=== PATIENT | male | born 1995 | race American Indian/Alaskan Native ===

== ENCOUNTER 2018-01-08 18:18 | Inpatient (IN) | payer OTHER ==
[2018-01-08 19:15] LABS: Basophils # (Auto) 0.1 K/mm3 (0.0-0.1); Basophils % (Auto) 0.9 % (0.0-1.8); Eosinophils # (Auto) 0.1 K/mm3 (0.0-0.4); Eosinophils % (Auto) 0.7 % (0.0-4.3); Hematocrit 52.7 % (35.5-45.6); Hemoglobin 16.7 gm/dl (11.8-15.2); Lymphocytes # (Auto) 2.6 K/mm3 (1.2-5.4); Lymphocytes % (Auto) 23.9 % (13.4-35.0); Mean Corpuscular HGB Conc 32 % (32-34); Mean Corpuscular Hemoglobin 25 pg (28-32); Mean Corpuscular Volume 79 fl (84-94); Monocytes # (Auto) 0.7 K/mm3 (0.0-0.8); Monocytes % (Auto) 6.8 % (0.0-7.3); Platelet Count 177 K/mm3 (140-440); Red Blood Count 6.64 M/mm3 (3.65-5.03); Red Cell Distribution Width 13.8 % (13.2-15.2)
[2018-01-08 20:25] LABS: Alanine Aminotransferase 33 units/L (7-56); Albumin 4.9 g/dL (3.9-5); BUN/Creatinine Ratio 9; Blood Urea Nitrogen 13 mg/dL (9-20); Calcium 9.6 mg/dL (8.4-10.2); Hemolysis Index 13
[2018-01-08] MEDS ORDERED: NACL 0.9% 1000 ML 1,000 ML ONE (22:13)
[2018-01-08 22:14] LABS: Bilirubin,Urine NEG (Negative); Blood,Urine SM (Negative); Color,Urine Straw (Yellow); Mucus,Urine FEW /HPF; Urobilinogen,Urine < 2.0 mg/dL (<2.0)
[2018-01-08] MEDS ORDERED: NACL 0.9% 1000 ML 1,000 ML IV ONE (22:29)
[2018-01-09] MEDS ORDERED: HumuLIN R IV ONE (00:23)
--- NOTE | 2018-01-09 00:39 | Cat Scan Report ---
FINAL REPORT EXAM: CT ABDOMEN PELVIS WO CON HISTORY: abd pain, nausea, diabetic with epigastric pain TECHNIQUE: CT evaluation performed of the abdomen and pelvis without IV or oral contrast administration. Coronal and sagittal imaging also provided for interpretation. PRIORS: None. FINDINGS: Lower lungs and heart are unremarkable. Diffuse decreased attenuation of the patent parenchyma. The biliary system, pancreas, spleen, adrenal glands, kidneys and bladder are normal without contrast. The pelvic organs are normal. There is no evidence of mass, pathological calcification, or fluid collection noted within the abdomen or pelvis without contrast. The unopacified portions of the gastrointestinal tract are unremarkable. The appendix measures at the upper limits of normal, however there is no adjacent inflammatory change. No acute osseous abnormality. IMPRESSION: No acute intra-abdominal process. Specifically no obstructive uropathy or evidence of bowel obstruction. No periappendicial inflammatory changes. Hepatic steatosis.
--- NOTE | 2018-01-09 00:50 | Emergency Department Report ---
ED General Adult HPI - General Chief complaint: Abdominal Pain Stated complaint: ABD PAIN Time Seen by Provider: 01/08/18 21:20 Source: patient Mode of arrival: Ambulatory Limitations: No Limitations - History of Present Illness Initial comments: This is a pleasant 22-year-old -[place] male who reports having worsening abdominal pain and feelings of weakness and fatigue over the last 2 weeks. He has a history of hypertension but states he has no other medical problems. He states that his abdominal pain has worsened over the past several days and admits to nausea and vomiting. He also admits to frequent urination. He states that he feels very thirsty as well. He states that his lips are dry. He has a past medical history significant for tonsillectomy. -: Gradual, week(s) (2) Location: abdomen Radiation: non-radiation Quality: aching Consistency: constant Improves with: none Worsens with: none Associated Symptoms: headaches Treatments Prior to Arrival: none - Related Data Allergies Allergy/AdvReac Type Severity Reaction Status Date / Time No Known Allergies Allergy Unverified 01/08/18 18:35 ED Review of Systems ROS: Stated complaint: ABD PAIN Other details as noted in HPI Comment: All other systems reviewed and negative Constitutional: see HPI Eyes: as per HPI ENT: as per HPI Respiratory: see HPI Cardiovascular: as per HPI Endocrine: see HPI Gastrointestinal: as per HPI Genitourinary: as per HPI Musculoskeletal: as per HPI Skin: as per HPI Neurological: as per HPI Psychiatric: as per HPI Hematological/Lymphatic: as per HPI ED Past Medical Hx - Past Medical History Hx Hypertension: Yes - Surgical History Past Surgical History?: Yes Additional Surgical History: TONSILLECTOMY/ADNOIDECTOMY - Social History Smoking Status: Never Smoker Substance Use Type: None ED Physical Exam - General Limitations: No Limitations General appearance: lethargic - Head Head exam: Present: atraumatic, normocephalic - Eye Eye exam: Present: normal appearance, PERRL, EOMI - ENT ENT exam: Present: mucous membranes dry - Neck Neck exam: Present: normal inspection - Respiratory Respiratory exam: Present: normal lung sounds bilaterally. Absent: respiratory distress, wheezes, rales, rhonchi - Cardiovascular Cardiovascular Exam: Present: regular rate, normal rhythm, normal heart sounds - GI/Abdominal GI/Abdominal exam: Present: soft, tenderness (generalized). Absent: distended, guarding, rebound, rigid - Extremities Exam Extremities exam: Present: normal inspection, full ROM, normal capillary refill - Back Exam Back exam: Present: normal inspection, full ROM - Neurological Exam Neurological exam: Present: alert, CN II-XII intact - Psychiatric Psychiatric exam: Present: normal affect, normal mood - Skin Skin exam: Present: warm, dry, intact, normal color ED Course Vital Signs 01/08/18 01/08/18 01/08/18 18:32 20:58 21:00 Temperature 98.2 F Pulse Rate 113 H Respiratory 20 Rate Blood Pressure 147/95 143/95 O2 Sat by Pulse 97 99 98 Oximetry 01/08/18 01/08/18 01/08/18 21:16 21:30 21:45 Temperature Pulse Rate 102 H 102 H 100 H Respiratory 15 16 13 Rate Blood Pressure 145/99 156/94 156/94 O2 Sat by Pulse 94 97 99 Oximetry 01/08/18 01/08/18 01/08/18 22:04 22:15 22:24 Temperature Pulse Rate 91 H 90 Respiratory 27 H 13 Rate Blood Pressure 156/94 145/98 134/96 O2 Sat by Pulse 100 100 100 Oximetry 01/08/18 01/08/18 01/08/18 22:30 22:46 23:00 Temperature Pulse Rate 96 H 98 H 102 H Respiratory 14 18 16 Rate Blood Pressure 126/95 126/95 134/83 O2 Sat by Pulse 99 99 99 Oximetry 01/08/18 01/08/18 01/08/18 23:16 23:30 23:45 Temperature Pulse Rate 99 H 94 H 101 H Respiratory 13 16 14 Rate Blood Pressure 134/83 137/84 137/84 O2 Sat by Pulse 98 99 99 Oximetry - Reevaluation(s) Reevaluation #1: 01/09/18 01:45 New-onset diabetic patient. I discussed the case with the hospitalist. She will admit the patient. I went ahead and put in orders for DKA protocol. We will need to start the patient on an insulin drip and give fluids accordingly. Cautiously proceed. ED Medical Decision Making - Lab Data Result diagrams: 01/08/18 19:04 01/08/18 19:04 Critical care attestation.: If time is entered above; I have spent that time in minutes in the direct care of this critically ill patient, excluding procedure time. ED Disposition Clinical Impression: New onset type 2 diabetes mellitus DKA (diabetic ketoacidoses) Qualifiers: Diabetes mellitus type: type 2 Diabetes mellitus complication detail: without coma Qualified Code(s): E11.10 - Type 2 diabetes mellitus with ketoacidosis without coma Disposition: OP ADMIT IP TO THIS HOSP Is pt being admited?: Yes Does the pt Need Aspirin: No Condition: Stable Instructions: Diabetic Ketoacidosis (ED), Diabetes Mellitus Type 2 in Adults ( ED) Referrals: AKIN DIAZ MD [Primary Care Provider] - 3-5 Days
[2018-01-09] MEDS ORDERED: TYLENOL ONE (01:06)
[2018-01-09] MEDS ORDERED: TYLENOL PO ONE (01:12)
[2018-01-09] MEDS ORDERED: D50W (25GM) Syringe IV PRN (01:20)
[2018-01-09] MEDS ORDERED: ZOFRAN IV PRN (02:19)
[2018-01-09] MEDS ORDERED: TYLENOL PO PRN (02:19)
[2018-01-09] MEDS ORDERED: SODIUM CHLORIDE FLUSH SYRINGE 10 ML IV PRN (02:19)
[2018-01-09] MEDS: HumuLIN R 100 UNITS in NACL 0.9% 99 ML IV SCH ×4 (02:21→23:20)
[2018-01-09] MEDS ORDERED: APRESOLINE IV PRN (02:21)
--- NOTE | 2018-01-09 02:29 | History and Physical Report ---
History of Present Illness Date of examination: 01/09/18 History of present illness: 22-year-old male with a history of hypertension, obesity comes emergency room with abdominal pain that started to 4 days ago. The pain is in the lower abdomen which she described as a dull pain, constant, intensity palpable at 10, no radiation, he can't identify exacerbating or relieving factors. He admits to multiple episodes of nausea vomiting, polyuria, polydipsia, unclear if he lost any weight Review of systems Constitutional: no weight loss, chills Ears, eyes, nose, mouth and throat: no nasal congestion, no nasal discharge, no sinus pressure, no vision change, no red eye. Neck: No neck pain or rigidity. Cardiovascular: no chest pain palpitations Respiratory: No cough, shortness of breath Gastrointestinal: no abdominal pain, hematochezia Genitourinary : no dysuria, frequency , no hematuria Musculoskeletal: no joint swelling or muscle ache Integumentary: no rash, no pruritis Neurological: no parathesias, no numbness, no focal weakness Endocrine: no cold or heat intolerance Hematologic/Lymphatic: no easy bruising, no easy bleeding, no gland swelling Allergic/Immunologic: no urticaria, no angioedema. PAST MEDICAL HISTORY: Hypertension PAST SURGICAL HISTORY: Tonsillectomy, adenoidectomy SOCIAL HISTORY: Denies tobacco, alcohol, drugs FAMILY HISTORY: Diabetes, hypertension Medications and Allergies Allergies Allergy/AdvReac Type Severity Reaction Status Date / Time No Known Allergies Allergy Unverified 01/08/18 18:35 Home Medications Medication Instructions Recorded Confirmed Last Taken Type No Known Home Medications [No 01/09/18 01/09/18 Unknown History Reported Home Medications] Active Meds: Active Medications Acetaminophen (Tylenol) 650 mg PO Q4H PRN PRN Reason: Pain MILD(1-3)/Fever >100.5/BEJARANO Dextrose (D50w (25gm) Syringe) 0 ml IV PRN PRN PRN Reason: Hypoglycemia Enoxaparin Sodium (Lovenox) 30 mg SUB-Q QDAY [facility] Hydralazine HCl (Apresoline) 5 mg IV Q6HR PRN PRN Reason: Hypertension Insulin Human Regular 100 (units/ Sodium Chloride) 100 mls @ 1 mls/hr IV TITR SY[facility]; Protocol Dextrose/Sodium Chloride (D5/0.45ns) 1,000 mls @ 150 mls/hr IV DIRECT SY[facility] Sodium Chloride (Nacl 0.9% 1000 Ml) 1,000 mls @ 150 mls/hr IV DIRECT [facility] Morphine Sulfate (Morphine) 2 mg IV Q4H PRN PRN Reason: Pain, Moderate (4-6) Ondansetron HCl (Zofran) 4 mg IV Q8H PRN PRN Reason: Nausea And Vomiting Sodium Chloride (Sodium Chloride Flush Syringe 10 Ml) 10 ml IV BID SYLVIA Sodium Chloride (Sodium Chloride Flush Syringe 10 Ml) 10 ml IV PRN PRN PRN Reason: LINE FLUSH Exam - Physical Exam Narrative exam: Gen. appearance: Patient lying in bed, no apparent distress HEENT: Normocephalic, atraumatic, pupils equally round and reactive to light, extraocular movement intact, and no sclericterus,. No JVD or thyromegaly or nodule,neck supple, no carotid bruit ,mucous membranes dry, no exudate or erythema Heart: S1, S2, regular rate and rhythm Lungs: Clear to auscultation bilaterally, breathing comfortable Abdomen: Positive bowel sounds, nontender, nondistended, no organomegaly Extremity: No edema, cyanosis, clubbing Skin: No rash, nodules, warm, dry Neuro: Oriented 3, cranial nerves II-12 intact, speech is fluent, motor and sensory intact - Constitutional Vitals: Temp Pulse Resp BP Pulse Ox 98.2 F 97 H 18 135/78 100 01/08/18 18:32 01/09/18 01:56 01/09/18 01:56 01/09/18 01:56 01/09/18 01:56 Results - Labs CBC & Chem 7: 01/08/18 19:04 01/08/18 19:04 Labs: Abnormal lab results 01/08/18 01/08/18 01/09/18 Range/Units 19:04 19:04 00:10 RBC 6.64 H (3.65-5.03) M/mm3 Hgb 16.7 H (11.8-15.2) gm/dl Hct 52.7 H (35.5-45.6) % MCV 79 L (84-94) fl MCH 25 L (28-32) pg Sodium 127 L (137-145) mmol/L Potassium 5.5 H (3.6-5.0) mmol/L Chloride 80.0 L (98-107) mmol/L Carbon Dioxide 14 L (22-30) mmol/L Glucose 591 H* (75-100) mg/dL POC Glucose 385 H (70-105) Total Protein 9.1 H (6.3-8.2) g/dL - Imaging and Cardiology EKG: image reviewed CT scan - abdomen: report reviewed CT scan - pelvis: report reviewed Assessment and Plan Assessment DKA New-onset diabetes Hypertensition Obesity Plan Admit medicine Start DKA protocol with insulin drip, IV fluids Check serial chemistry, fingersticks Consult critical care, dietitian IV hydralazine, IV morphine DVT prophylaxis
[2018-01-09 02:59] LABS: BUN/Creatinine Ratio 9; Blood Urea Nitrogen 12 mg/dL (9-20); Calcium 9.3 mg/dL (8.4-10.2); Hemolysis Index 14
[2018-01-09] MEDS ORDERED: NACL 0.9% 1000 ML 1,000 ML IV SCH (03:00)
[2018-01-09 05:05] LABS: BUN/Creatinine Ratio 8; Blood Urea Nitrogen 11 mg/dL (9-20); Calcium 9.1 mg/dL (8.4-10.2); Hemolysis Index 20
[2018-01-09] MEDS: D5/0.45NS 1,000 ML IV SCH ×2 (06:47→22:23)
[2018-01-09] MEDS: MORPHINE IV PRN ×2 (07:02→12:50)
[2018-01-09 07:58] LABS: BUN/Creatinine Ratio 9; Blood Urea Nitrogen 11 mg/dL (9-20); Calcium 9.1 mg/dL (8.4-10.2); Hemolysis Index 2
[2018-01-09] MEDS ORDERED: NACL 0.9% 1000 ML 1,000 ML IV ONE (09:00)
[2018-01-09] MEDS: SODIUM CHLORIDE FLUSH SYRINGE 10 ML IV SCH (10:48)
[2018-01-09 10:57] LABS: BUN/Creatinine Ratio 10; Blood Urea Nitrogen 11 mg/dL (9-20); Calcium 8.9 mg/dL (8.4-10.2); Hemolysis Index 215
[2018-01-09] MEDS: LOVENOX SUB-Q SCH (11:24)
--- NOTE | 2018-01-09 14:25 | Consultation ---
History of Present Illness Consult date: 01/09/18 Reason for consult: other History of present illness: Called to evaluate at the ED, case of a 22-year-old -[place] male, admitted to the hospital yesterday with a history of nausea, vomiting at all discomfort. The patient reports that he had been sick for the past 3-4 days with the symptoms. Additional associated complaints include polydipsia and polyuria. No fever or chills reported. No chest pain or respiratory complaints. Mother reports they have been feeling tired frequently in recent months. No prior history of diabetes, thyroid disorder. He has gained significant weight in the past year probably over 20 pounds. Snoring noted at nighttime, there may be a vague history of apneas but this is not clearly confirmed. Also recent diagnosis of hypertension, initiated on lisinopril Initial laboratories showed the following: Laboratory Tests 01/08/18 01/08/18 01/08/18 19:04 19:04 21:37 WBC 10.9 Hgb 16.7 H Hct 52.7 H Sodium 127 L Potassium 5.5 H Chloride 80.0 L Carbon Dioxide 14 L BUN 13 Creatinine 1.5 Glucose 591 H* POC Glucose 446 H Ketones Quantitative 01/08/18 01/09/18 23:42 02:34 WBC Hgb Hct Sodium 133 L Potassium Chloride 86.3 L Carbon Dioxide 14 L BUN Creatinine Glucose POC Glucose Ketones Quantitative Negative Medications and Allergies Allergies Allergy/AdvReac Type Severity Reaction Status Date / Time No Known Allergies Allergy Unverified 01/08/18 18:35 Home Medications Medication Instructions Recorded Confirmed Last Taken Type No Known Home Medications [No 01/09/18 01/09/18 Unknown History Reported Home Medications] Active Meds: Active Medications Acetaminophen (Tylenol) 650 mg PO Q4H PRN PRN Reason: Pain MILD(1-3)/Fever >100.5/BEJARANO Dextrose (D50w (25gm) Syringe) 0 ml IV PRN PRN PRN Reason: Hypoglycemia Enoxaparin Sodium (Lovenox) 40 mg SUB-Q QDAY [facility] Last Admin: 01/09/18 11:24 Dose: 40 mg Hydralazine HCl (Apresoline) 5 mg IV Q6H PRN PRN Reason: Hypertension Insulin Human Regular 100 (units/ Sodium Chloride) 100 mls @ 1 mls/hr IV TITR SYLVIA; Protocol Last Titration: 01/09/18 11:52 Dose: 7 units/hr, 7 mls/hr Dextrose/Sodium Chloride (D5/0.45ns) 1,000 mls @ 150 mls/hr IV DIRECT SYLVIA Last Admin: 01/09/18 06:47 Dose: 150 mls/hr Sodium Chloride (Nacl 0.9% 1000 Ml) 1,000 mls @ 150 mls/hr IV DIRECT SY[facility] Morphine Sulfate (Morphine) 2 mg IV Q4H PRN PRN Reason: Pain, Moderate (4-6) Last Admin: 01/09/18 07:02 Dose: 2 mg Ondansetron HCl (Zofran) 4 mg IV Q8H PRN PRN Reason: Nausea And Vomiting Last Admin: 01/09/18 07:02 Dose: 4 mg Sodium Chloride (Sodium Chloride Flush Syringe 10 Ml) 10 ml IV BID SYLVIA Last Admin: 01/09/18 10:48 Dose: 10 ml Sodium Chloride (Sodium Chloride Flush Syringe 10 Ml) 10 ml IV PRN PRN PRN Reason: LINE FLUSH Review of Systems Constitutional: weight gain, fatigue, weakness Physical Examination Vital signs: Vital Signs Temp Pulse Resp BP Pulse Ox 98.2 F 113 H 20 147/95 97 01/08/18 18:32 01/08/18 18:32 01/08/18 18:32 01/08/18 18:32 01/08/18 18:32 General appearance: no acute distress, alert Eyes: non-icteric ENT: oropharynx moist, oropharynx dry, other (Jeremy Craigong with Mallampati 4 ) Neck: supple, no JVD Ascultation: Bilateral: clear Percussion: Bilateral: not dull Cardiovascular: regular rate and rhythm Gastrointestinal: normoactive bowel sounds, non-distended Integumentary: normal Extremities: no cyanosis, no edema Musculoskeletal: no deformities normal mental status, non-focal exam, pupils equal and round, CN II-XII normal mood appropriate, affect normal Results - Laboratory Findings CBC and BMP: 01/08/18 19:04 01/09/18 09:55 Abnormal lab findings: Abnormal Labs 01/08/18 01/08/18 01/08/18 19:04 19:04 21:37 RBC 6.64 H Hgb 16.7 H Hct 52.7 H MCV 79 L MCH 25 L Sodium 127 L Potassium 5.5 H Chloride 80.0 L Carbon Dioxide 14 L Glucose 591 H* POC Glucose 446 H Total Protein 9.1 H 01/09/18 01/09/18 01/09/18 00:10 02:21 02:34 RBC Hgb Hct MCV MCH Sodium 133 L Potassium Chloride 86.3 L Carbon Dioxide 14 L Glucose 362 H POC Glucose 385 H 347 H Total Protein 01/09/18 01/09/18 01/09/18 04:30 04:31 06:37 RBC Hgb Hct MCV MCH Sodium 133 L Potassium Chloride 89.9 L Carbon Dioxide 13 L Glucose 304 H POC Glucose 282 H 256 H Total Protein 01/09/18 01/09/18 01/09/18 07:16 08:21 09:55 RBC Hgb Hct MCV MCH Sodium 136 L 130 L Potassium Chloride 92.1 L 92.7 L Carbon Dioxide 14 L 13 L Glucose 273 H 275 H POC Glucose 230 H Total Protein 01/09/18 01/09/18 01/09/18 10:15 11:47 13:43 RBC Hgb Hct MCV MCH Sodium Potassium Chloride Carbon Dioxide Glucose POC Glucose 256 H 280 H 252 H Total Protein Assessment and Plan Hyperosmolar state. Improving Diabetes de richard Hyponatremia Hyperkalemia. On AB inhibitor drug Morbid obesity Hypertension Suspected MORTEZA Recommendations Insulin drip , follow-up DKA protocol orders. May be close to be switched to NSS /D5W by now, depending on next blood sugar and electrolytes, AG level Insulin, sliding scale blood sugar monitoring closely Continue IV fluid replacement with normal saline 1 L, then follow with 0.45% saline at 200-250 mL per hour next 12-24 hours, if not hyponatremic. Switch to 0.45/D5W once blood sugars under 250 mg/DL and sodium normal Potassium improvement noted but reassess closely if lisinopril is to be used Assessment nephrology evaluation if renal profile remains abnormal Monitor serial electrolytes,AG, osmolality (avoid rapid drops) closely q 2-4 hr Regarding ICU admission, if the patient does not need insulin drip anymore, he called be admitted to the floor with close blood sugar monitoring as for diabetes de richard . Recommend hospitalist to follow up this. I also recommend outpatient evaluation for MORTEZA. I discussed this with patient and mother at the bedside. DVT prophylaxis measures. We'll follow the floor for MORTEZA, if the patient is not admitted the ICU
[2018-01-09 18:23] LABS: BUN/Creatinine Ratio 7; Blood Urea Nitrogen 8 mg/dL (9-20); Calcium 8.8 mg/dL (8.4-10.2); Hemolysis Index 8
[2018-01-10] MEDS: MORPHINE IV PRN (01:43)
[2018-01-10] MEDS: SODIUM CHLORIDE FLUSH SYRINGE 10 ML IV SCH ×3 (01:49→22:00)
[2018-01-10 03:11] LABS: BUN/Creatinine Ratio 5; Blood Urea Nitrogen 6 mg/dL (9-20); Calcium 8.5 mg/dL (8.4-10.2); Hemolysis Index 39
[2018-01-10] MEDS: D5/0.45NS 1,000 ML IV SCH (05:25)
[2018-01-10] MEDS: HumuLIN R 100 UNITS in NACL 0.9% 99 ML IV SCH (08:41)
--- NOTE | 2018-01-10 09:32 | Progress Note ---
Assessment and Plan Assessment and plan: 22-year-old male with a history of hypertension, obesity comes emergency room with abdominal pain that started to 4 days ago. The pain is in the lower abdomen which she described as a dull pain, constant, intensity palpable at 10, no radiation, he can't identify exacerbating or relieving factors. He admits to multiple episodes of nausea vomiting, polyuria, polydipsia, unclear if he lost any weight DKA * Order additional bolus of fluid. Continue insulin drip. After the bolus was 2 half-normal saline with D5W until sugar is under 250 and sodium as normal. * Discussed extensively with the patient's mother. * Transition orders in place while his anion gap is closed. New-onset diabetes * As noted above Hypertension * Controlled Pseudohyponatremia * Expect improvements with glucose improvement. Hypokalemia * Replace Morbid obesity * Weight loss discussed in detail. DVT and GI prophylaxis PLAN OF CARE DISCUSSED WITH PATIENT AND FAMILY AND WITH ADMISSION DISCHARGE RN The high probability of a clinically significant, sudden or life threatening deterioration of the [ENDOCRINE] system(s) required my full and direct attention , intervention and personal management. The aggregate critical care time was [35 ] minutes. This time is in addition to time spent performing reported procedures but includes the following: [X] Data Review and interpretation [X] Patient assessment and monitoring of vital signs [X] Documentation [X] Medication orders and management History Interval history: Patient seen and examined in no acute distress resting comfortably. Although he is drowsy he was able to answer a few questions, mother is at bedside, he reported headache although not the worst headache of his life Hospitalist Physical - Physical exam Narrative exam: VITAL SIGNS: Reviewed. GENERAL: The patient appeared well nourished and normally developed. Obese. Vital signs as documented. HEAD: No signs of head trauma. EYES: Pupils are equal. Extraocular motions intact. EARS: Hearing grossly intact. MOUTH: Oropharynx is normal. NECK: No adenopathy, no JVD. CHEST: Chest with clear breath sounds bilaterally. No wheezes, rales, or rhonchi. CARDIAC: Regular rate and rhythm. S1 and S2, without murmurs, gallops, or rubs. VASCULAR: No Edema. Peripheral pulses normal and equal in all extremities. ABDOMEN: Soft, without detectable tenderness. No sign of distention. No rebound or guarding, and no masses palpated. Bowel Sounds normal. MUSCULOSKELETAL: Good range of motion of all major joints. Extremities without clubbing, cyanosis or edema. NEUROLOGIC EXAM: Alert and oriented x 3. No focal sensory or strength deficits. Speech normal. Follows commands. PSYCHIATRIC: Mood normal. SKIN: No rash or lesions. - Constitutional Vitals: Temp Pulse Resp BP Pulse Ox 98.0 F 91 H 10 L 127/85 98 01/10/18 04:00 01/10/18 09:01 01/10/18 09:01 01/10/18 09:01 01/10/18 09:01 Results - Labs CBC & Chem 7: 01/08/18 19:04 01/11/18 06:11 Labs: Laboratory Last Values WBC 10.9 K/mm3 (4.5-11.0) 01/08/18 19:04 RBC 6.64 M/mm3 (3.65-5.03) H 01/08/18 19:04 Hgb 16.7 gm/dl (11.8-15.2) H 01/08/18 19:04 Hct 52.7 % (35.5-45.6) H 01/08/18 19:04 MCV 79 fl (84-94) L 01/08/18 19:04 MCH 25 pg (28-32) L 01/08/18 19:04 MCHC 32 % (32-34) 01/08/18 19:04 RDW 13.8 % (13.2-15.2) 01/08/18 19:04 Plt Count 177 K/mm3 (140-440) 01/08/18 19:04 Lymph % (Auto) 23.9 % (13.4-35.0) 01/08/18 19:04 [place] % (Auto) 6.8 % (0.0-7.3) 01/08/18 19:04 Eos % (Auto) 0.7 % (0.0-4.3) 01/08/18 19:04 Baso % (Auto) 0.9 % (0.0-1.8) 01/08/18 19:04 Lymph # 2.6 K/mm3 (1.2-5.4) 01/08/18 19:04 [place] # 0.7 K/mm3 (0.0-0.8) 01/08/18 19:04 Eos # 0.1 K/mm3 (0.0-0.4) 01/08/18 19:04 Baso # 0.1 K/mm3 (0.0-0.1) 01/08/18 19:04 Seg Neutrophils % 67.7 % (40.0-70.0) 01/08/18 19:04 Seg Neutrophils # 7.4 K/mm3 (1.8-7.7) 01/08/18 19:04 Sodium 134 mmol/L (137-145) L 01/10/18 01:31 Potassium 3.9 mmol/L (3.6-5.0) 01/10/18 01:31 Chloride 91.6 mmol/L (98-107) L 01/10/18 01:31 Carbon Dioxide 14 mmol/L (22-30) L 01/10/18 01:31 Anion Gap 32 mmol/L 01/10/18 01:31 BUN 6 mg/dL (9-20) L 01/10/18 01:31 Creatinine 1.1 mg/dL (0.8-1.5) 01/10/18 01:31 Estimated GFR > 60 ml/min 01/10/18 01:31 BUN/Creatinine Ratio 5 % 01/10/18 01:31 Glucose 210 mg/dL (75-100) H 01/10/18 01:31 POC Glucose 179 (70-105) H 01/10/18 09:02 Ketones Quantitative Negative (Negative) 01/08/18 23:42 Calcium 8.5 mg/dL (8.4-10.2) 01/10/18 01:31 Phosphorus 3.40 mg/dL (2.5-4.5) 01/09/18 02:34 Magnesium 2.30 mg/dL (1.7-2.3) 01/09/18 02:34 Total Bilirubin 0.80 mg/dL (0.1-1.2) 01/08/18 19:04 AST 23 units/L (5-40) 01/08/18 19:04 ALT 33 units/L (7-56) 01/08/18 19:04 Alkaline Phosphatase 104 units/L (35-129) 01/08/18 19:04 Total Protein 9.1 g/dL (6.3-8.2) H 01/08/18 19:04 Albumin 4.9 g/dL (3.9-5) 01/08/18 19:04 Albumin/Globulin Ratio 1.2 % 01/08/18 19:04 Lipase 21 units/L (13-60) 01/08/18 19:04 Urine Color Straw (Yellow) 01/08/18 21:53 Urine Turbidity Clear (Clear) 01/08/18 21:53 Urine pH 5.0 (5.0-7.0) 01/08/18 21:53 Ur Specific [place] 1.030 (1.003-1.030) 01/08/18 21:53 Urine Protein 30 mg/dl mg/dL (Negative) 01/08/18 21:53 Urine Glucose (UA) >=500 mg/dL (Negative) 01/08/18 21:53 Urine Ketones 80 mg/dL (Negative) 01/08/18 21:53 Urine Blood Sm (Negative) 01/08/18 21:53 Urine Nitrite Neg (Negative) 01/08/18 21:53 Urine Bilirubin Neg (Negative) 01/08/18 21:53 Urine Urobilinogen < 2.0 mg/dL (<2.0) 01/08/18 21:53 Ur Leukocyte Esterase Neg (Negative) 01/08/18 21:53 Urine WBC (Auto) 3.0 /HPF (0.0-6.0) 01/08/18 21:53 Urine RBC (Auto) 1.0 /HPF (0.0-6.0) 01/08/18 21:53 Urine Mucus Few /HPF 01/08/18 21:53
[2018-01-10] MEDS: LOVENOX SUB-Q SCH (10:23)
[2018-01-10] MEDS ORDERED: NACL 0.9% 1000 ML 1,000 ML IV ONE (11:00)
[2018-01-10 14:54] LABS: BUN/Creatinine Ratio 6; BUN/Creatinine Ratio 7; Blood Urea Nitrogen 6 mg/dL (9-20); Calcium 8.4 mg/dL (8.4-10.2); Calcium 8.5 mg/dL (8.4-10.2); Hemolysis Index 2; Hemolysis Index 5
--- NOTE | 2018-01-10 17:17 | Progress Note ---
Assessment and Plan Hyperosmolar state. Improving still on iron gap slightly elevated. Diabetes de richard Hyponatremia Hyperkalemia. On AB inhibitor drug Morbid obesity Hypertension Suspected MORTEZA Recommendations Discussed with Dr. Acosta I agree with additional fluid bolus Insulin drip , follow-up DKA protocol orders. Switch to 0.45 SS/D5W, depending on next blood sugar and electrolytes, AG level Continue IV fluid replacement with normal saline 1 L, then follow with 0.45% saline at 200-250 mL per hour next 12-24 hours, if not hyponatremic. Monitor potassium and serum electrolytes Monitor intake and output Monitor serial electrolytes,AG, osmolality (avoid rapid drops) closely q 2-4 hr I also recommend outpatient evaluation for MORTEZA. I discussed this with patient and mother at the bedside. DVT prophylaxis measures. Continue follow-up while on the unit. Subjective Date of service: 01/10/18 Interval history: No respiratory complaints. Still feels weak and sleepy at times. Also hungry asking to start his meals. Objective Vital Signs - 12hr 01/10/18 01/10/18 01/10/18 05:21 05:31 05:41 Pulse Rate 95 H 91 H 98 H Pulse Rate [ Left Radial] Pulse Rate [ Right Dorsalis Pedis] Respiratory 13 16 12 Rate Blood Pressure 133/88 133/88 133/88 O2 Sat by Pulse 99 99 99 Oximetry 01/10/18 01/10/18 01/10/18 05:51 06:00 06:01 Pulse Rate 111 H 99 H Pulse Rate [ 85 Left Radial] Pulse Rate [ 85 Right Dorsalis Pedis] Respiratory 16 22 12 Rate Blood Pressure 133/88 133/88 O2 Sat by Pulse 100 100 98 Oximetry 01/10/18 01/10/18 01/10/18 06:11 06:21 07:00 Pulse Rate 91 H 101 H 91 H Pulse Rate [ Left Radial] Pulse Rate [ Right Dorsalis Pedis] Respiratory 15 12 14 Rate Blood Pressure 133/88 123/66 113/62 O2 Sat by Pulse 98 100 98 Oximetry 01/10/18 01/10/18 01/10/18 08:01 09:01 10:00 Pulse Rate 93 H 91 H 86 Pulse Rate [ Left Radial] Pulse Rate [ Right Dorsalis Pedis] Respiratory 14 10 L 10 L Rate Blood Pressure 127/85 127/85 114/78 O2 Sat by Pulse 99 98 97 Oximetry 01/10/18 01/10/18 01/10/18 11:00 12:01 13:01 Pulse Rate 100 H 89 85 Pulse Rate [ Left Radial] Pulse Rate [ Right Dorsalis Pedis] Respiratory 11 L 14 18 Rate Blood Pressure 132/79 124/76 129/69 O2 Sat by Pulse 97 99 96 Oximetry 01/10/18 01/10/18 01/10/18 14:00 15:01 16:01 Pulse Rate 86 95 H 79 Pulse Rate [ Left Radial] Pulse Rate [ Right Dorsalis Pedis] Respiratory 17 11 L 17 Rate Blood Pressure 127/74 136/74 136/75 O2 Sat by Pulse 99 99 97 Oximetry Constitutional: no acute distress, alert Eyes: non-icteric ENT: oropharynx moist, oropharynx dry, other ( Mallampati 4) Neck: supple, no JVD Ascultation: Bilateral: clear Percussion: Bilateral: not dull Cardiovascular: regular rate and rhythm Gastrointestinal: normoactive bowel sounds, non-distended Integumentary: normal Extremities: no cyanosis, no edema Neurologic: normal mental status, non-focal exam, pupils equal and round, CN II- XII normal Psychiatric: mood appropriate, affect normal CBC and BMP: 01/08/18 19:04 01/10/18 10:57 Abnormal lab findings: Abnormal Labs 01/08/18 01/08/18 01/08/18 19:04 19:04 21:37 RBC 6.64 H Hgb 16.7 H Hct 52.7 H MCV 79 L MCH 25 L Sodium 127 L Potassium 5.5 H Chloride 80.0 L Carbon Dioxide 14 L BUN Glucose 591 H* POC Glucose 446 H Hemoglobin A1c Total Protein 9.1 H 01/09/18 01/09/18 01/09/18 00:10 02:21 02:34 RBC Hgb Hct MCV MCH Sodium 133 L Potassium Chloride 86.3 L Carbon Dioxide 14 L BUN Glucose 362 H POC Glucose 385 H 347 H Hemoglobin A1c Total Protein 01/09/18 01/09/18 01/09/18 04:30 04:31 06:37 RBC Hgb Hct MCV MCH Sodium 133 L Potassium Chloride 89.9 L Carbon Dioxide 13 L BUN Glucose 304 H POC Glucose 282 H 256 H Hemoglobin A1c Total Protein 01/09/18 01/09/18 01/09/18 07:16 08:21 09:55 RBC Hgb Hct MCV MCH Sodium 136 L 130 L Potassium Chloride 92.1 L 92.7 L Carbon Dioxide 14 L 13 L BUN Glucose 273 H 275 H POC Glucose 230 H Hemoglobin A1c Total Protein 01/09/18 01/09/18 01/09/18 10:15 11:47 13:43 RBC Hgb Hct MCV MCH Sodium Potassium Chloride Carbon Dioxide BUN Glucose POC Glucose 256 H 280 H 252 H Hemoglobin A1c Total Protein 01/09/18 01/09/18 01/09/18 15:32 16:41 17:36 RBC Hgb Hct MCV MCH Sodium 132 L Potassium Chloride 89.3 L Carbon Dioxide 16 L BUN 8 L Glucose 286 H POC Glucose 244 H 280 H Hemoglobin A1c Total Protein 01/09/18 01/09/18 01/09/18 18:48 19:58 21:01 RBC Hgb Hct MCV MCH Sodium Potassium Chloride Carbon Dioxide BUN Glucose POC Glucose 258 H 247 H 236 H Hemoglobin A1c Total Protein 01/09/18 01/09/18 01/10/18 22:13 23:15 00:16 RBC Hgb Hct MCV MCH Sodium Potassium Chloride Carbon Dioxide BUN Glucose POC Glucose 150 H 217 H 207 H Hemoglobin A1c Total Protein 01/10/18 01/10/18 01/10/18 01:23 01:31 02:10 RBC Hgb Hct MCV MCH Sodium 134 L Potassium Chloride 91.6 L Carbon Dioxide 14 L BUN 6 L Glucose 210 H POC Glucose 200 H 186 H Hemoglobin A1c Total Protein 01/10/18 01/10/18 01/10/18 03:03 04:12 05:04 RBC Hgb Hct MCV MCH Sodium Potassium Chloride Carbon Dioxide BUN Glucose POC Glucose 255 H 206 H 248 H Hemoglobin A1c Total Protein 01/10/18 01/10/18 01/10/18 06:18 07:04 08:02 RBC Hgb Hct MCV MCH Sodium Potassium Chloride Carbon Dioxide BUN Glucose POC Glucose 190 H 175 H 190 H Hemoglobin A1c Total Protein 01/10/18 01/10/18 01/10/18 09:02 10:57 10:57 RBC Hgb Hct MCV MCH Sodium 136 L Potassium 3.1 L D 3.1 L Chloride 94.8 L 95.2 L Carbon Dioxide 20 L 21 L BUN 6 L 6 L Glucose 160 H 161 H POC Glucose 179 H Hemoglobin A1c Total Protein 01/10/18 10:57 RBC Hgb Hct MCV MCH Sodium Potassium Chloride Carbon Dioxide BUN Glucose POC Glucose Hemoglobin A1c 15.4 H Total Protein
[2018-01-10 18:10] LABS: BUN/Creatinine Ratio 6; Blood Urea Nitrogen 5 mg/dL (9-20); Calcium 8.1 mg/dL (8.4-10.2); Hemolysis Index 7
[2018-01-10] MEDS: D5W/0.45% NACL/KCL 20 MEQ 20 MEQ/1,000 ML BAG IV SCH (18:21)
[2018-01-10] MEDS: HumaLOG SUB-Q SCH (22:31)
[2018-01-10] MEDS: NACL 0.9% 1000 ML 1,000 ML IV SCH (22:31)
[2018-01-11 01:06] LABS: BUN/Creatinine Ratio 7; Blood Urea Nitrogen 6 mg/dL (9-20); Calcium 8.1 mg/dL (8.4-10.2); Hemolysis Index 3
[2018-01-11] MEDS: HumaLOG SUB-Q SCH ×3 (01:28→09:56)
[2018-01-11] MEDS: NACL 0.9% 1000 ML 1,000 ML IV SCH (06:00)
[2018-01-11 07:39] LABS: BUN/Creatinine Ratio 6; Blood Urea Nitrogen 5 mg/dL (9-20); Calcium 8.3 mg/dL (8.4-10.2); Hemolysis Index 15
--- NOTE | 2018-01-11 09:30 | Progress Note ---
Assessment and Plan Assessment and plan: 22-year-old male with a history of hypertension, obesity comes emergency room with abdominal pain that started to 4 days ago. The pain is in the lower abdomen which she described as a dull pain, constant, intensity palpable at 10, no radiation, he can't identify exacerbating or relieving factors. He admits to multiple episodes of nausea vomiting, polyuria, polydipsia, unclear if he lost any weight DKA * Order additional bolus of fluid. Continue insulin drip. After the bolus was 2 half-normal saline with D5W until sugar is under 250 and sodium as normal. * Discussed extensively with the patient's mother. * Transition orders in place while his anion gap is closed. New-onset diabetes * As noted above Hypertension * Controlled Pseudohyponatremia * Expect improvements with glucose improvement. Hypokalemia * Replace Morbid obesity * Weight loss discussed in detail. DVT and GI prophylaxis PLAN OF CARE DISCUSSED WITH PATIENT AND FAMILY AND WITH COPYRIGHT EXPERT The high probability of a clinically significant, sudden or life threatening deterioration of the [ENDOCRINE] system(s) required my full and direct attention , intervention and personal management. The aggregate critical care time was [35 ] minutes. This time is in addition to time spent performing reported procedures but includes the following: [X] Data Review and interpretation [X] Patient assessment and monitoring of vital signs [X] Documentation [X] Medication orders and management History Interval history: Patient seen and examined in no acute distress resting comfortably. Although he is drowsy he was able to answer a few questions, mother is at bedside, he reported headache although not the worst headache of his life Hospitalist Physical - Physical exam Narrative exam: VITAL SIGNS: Reviewed. GENERAL: The patient appeared well nourished and normally developed. Obese. Vital signs as documented. HEAD: No signs of head trauma. EYES: Pupils are equal. Extraocular motions intact. EARS: Hearing grossly intact. MOUTH: Oropharynx is normal. NECK: No adenopathy, no JVD. CHEST: Chest with clear breath sounds bilaterally. No wheezes, rales, or rhonchi. CARDIAC: Regular rate and rhythm. S1 and S2, without murmurs, gallops, or rubs. VASCULAR: No Edema. Peripheral pulses normal and equal in all extremities. ABDOMEN: Soft, without detectable tenderness. No sign of distention. No rebound or guarding, and no masses palpated. Bowel Sounds normal. MUSCULOSKELETAL: Good range of motion of all major joints. Extremities without clubbing, cyanosis or edema. NEUROLOGIC EXAM: Alert and oriented x 3. No focal sensory or strength deficits. Speech normal. Follows commands. PSYCHIATRIC: Mood normal. SKIN: No rash or lesions. - Constitutional Vitals: Temp Pulse Resp BP Pulse Ox 98.2 F 101 H 17 128/69 99 01/11/18 08:00 01/11/18 08:01 01/11/18 08:01 01/11/18 08:01 01/11/18 08:01 Results - Labs CBC & Chem 7: 01/13/18 05:54 01/13/18 05:54 Labs: Laboratory Last Values WBC 10.9 K/mm3 (4.5-11.0) 01/08/18 19:04 RBC 6.64 M/mm3 (3.65-5.03) H 01/08/18 19:04 Hgb 16.7 gm/dl (11.8-15.2) H 01/08/18 19:04 Hct 52.7 % (35.5-45.6) H 01/08/18 19:04 MCV 79 fl (84-94) L 01/08/18 19:04 MCH 25 pg (28-32) L 01/08/18 19:04 MCHC 32 % (32-34) 01/08/18 19:04 RDW 13.8 % (13.2-15.2) 01/08/18 19:04 Plt Count 177 K/mm3 (140-440) 01/08/18 19:04 Lymph % (Auto) 23.9 % (13.4-35.0) 01/08/18 19:04 [place] % (Auto) 6.8 % (0.0-7.3) 01/08/18 19:04 Eos % (Auto) 0.7 % (0.0-4.3) 01/08/18 19:04 Baso % (Auto) 0.9 % (0.0-1.8) 01/08/18 19:04 Lymph # 2.6 K/mm3 (1.2-5.4) 01/08/18 19:04 [place] # 0.7 K/mm3 (0.0-0.8) 01/08/18 19:04 Eos # 0.1 K/mm3 (0.0-0.4) 01/08/18 19:04 Baso # 0.1 K/mm3 (0.0-0.1) 01/08/18 19:04 Seg Neutrophils % 67.7 % (40.0-70.0) 01/08/18 19:04 Seg Neutrophils # 7.4 K/mm3 (1.8-7.7) 01/08/18 19:04 Sodium 139 mmol/L (137-145) 01/11/18 06:11 Potassium 3.4 mmol/L (3.6-5.0) L 01/11/18 06:11 Chloride 99.2 mmol/L (98-107) 01/11/18 06:11 Carbon Dioxide 17 mmol/L (22-30) L 01/11/18 06:11 Anion Gap 26 mmol/L 01/11/18 06:11 BUN 5 mg/dL (9-20) L 01/11/18 06:11 Creatinine 0.9 mg/dL (0.8-1.5) 01/11/18 06:11 Estimated GFR > 60 ml/min 01/11/18 06:11 BUN/Creatinine Ratio 6 % 01/11/18 06:11 Glucose 205 mg/dL (75-100) H 01/11/18 06:11 POC Glucose 179 (70-105) H 01/10/18 09:02 Hemoglobin A1c 15.4 % (4-6) H 01/10/18 10:57 Ketones Quantitative Negative (Negative) 01/08/18 23:42 Calcium 8.3 mg/dL (8.4-10.2) L 01/11/18 06:11 Phosphorus 3.40 mg/dL (2.5-4.5) 01/09/18 02:34 Magnesium 2.30 mg/dL (1.7-2.3) 01/09/18 02:34 Total Bilirubin 0.80 mg/dL (0.1-1.2) 01/08/18 19:04 AST 23 units/L (5-40) 01/08/18 19:04 ALT 33 units/L (7-56) 01/08/18 19:04 Alkaline Phosphatase 104 units/L (35-129) 01/08/18 19:04 Total Protein 9.1 g/dL (6.3-8.2) H 01/08/18 19:04 Albumin 4.9 g/dL (3.9-5) 01/08/18 19:04 Albumin/Globulin Ratio 1.2 % 01/08/18 19:04 Lipase 21 units/L (13-60) 01/08/18 19:04 Urine Color Straw (Yellow) 01/08/18 21:53 Urine Turbidity Clear (Clear) 01/08/18 21:53 Urine pH 5.0 (5.0-7.0) 01/08/18 21:53 Ur Specific [place] 1.030 (1.003-1.030) 01/08/18 21:53 Urine Protein 30 mg/dl mg/dL (Negative) 01/08/18 21:53 Urine Glucose (UA) >=500 mg/dL (Negative) 01/08/18 21:53 Urine Ketones 80 mg/dL (Negative) 01/08/18 21:53 Urine Blood Sm (Negative) 01/08/18 21:53 Urine Nitrite Neg (Negative) 01/08/18 21:53 Urine Bilirubin Neg (Negative) 01/08/18 21:53 Urine Urobilinogen < 2.0 mg/dL (<2.0) 01/08/18 21:53 Ur Leukocyte Esterase Neg (Negative) 01/08/18 21:53 Urine WBC (Auto) 3.0 /HPF (0.0-6.0) 01/08/18 21:53 Urine RBC (Auto) 1.0 /HPF (0.0-6.0) 01/08/18 21:53 Urine Mucus Few /HPF 01/08/18 21:53
[2018-01-11] MEDS ORDERED: D50W (25GM) Syringe IV PRN (09:52)
--- NOTE | 2018-01-11 09:55 | Progress Note ---
Assessment and Plan Hyperosmolar state. Improving still on iron gap slightly elevated. Diabetes de richard Hyponatremia Hyperkalemia. On AB inhibitor drug Morbid obesity Hypertension Suspected MORTEZA Recommendations Potassium replacement Insulin drip being tapered , follow-up DKA protocol orders. 0.45 SS/D5W, depending on next blood sugar and electrolytes, AG level normal I also recommend outpatient evaluation for MORTEZA. I discussed this with patient and mother at the bedside. DVT prophylaxis measures. Continue follow-up while on the unit. He off insulin drip consistently and AG normal, possibly he could be transferred out for follow-up with Hospital medicine Subjective Date of service: 01/11/18 Interval history: Feels better. No new complaints. Objective Vital Signs - 12hr 01/10/18 01/10/18 01/11/18 22:00 23:00 00:00 Temperature Pulse Rate 93 H 95 H 98 H Pulse Rate [ 80 Right Radial] Respiratory 17 16 21 Rate Blood Pressure 125/65 141/88 131/84 O2 Sat by Pulse 99 100 97 Oximetry 01/11/18 01/11/18 01/11/18 00:05 01:00 01:09 Temperature 97.8 F Pulse Rate 96 H 95 H Pulse Rate [ Right Radial] Respiratory 22 21 Rate Blood Pressure 131/84 139/77 O2 Sat by Pulse 97 98 Oximetry 01/11/18 01/11/18 01/11/18 02:00 03:00 04:00 Temperature Pulse Rate 90 98 H 99 H Pulse Rate [ Right Radial] Respiratory 18 17 17 Rate Blood Pressure 139/77 125/77 126/69 O2 Sat by Pulse 97 99 100 Oximetry 01/11/18 01/11/18 01/11/18 05:00 06:01 07:01 Temperature 98 F Pulse Rate 114 H 101 H 96 H Pulse Rate [ Right Radial] Respiratory 23 13 16 Rate Blood Pressure 126/69 135/78 128/69 O2 Sat by Pulse 100 99 98 Oximetry 01/11/18 01/11/18 08:00 08:01 Temperature 98.2 F Pulse Rate 101 H Pulse Rate [ Right Radial] Respiratory 17 Rate Blood Pressure 128/69 O2 Sat by Pulse 99 Oximetry Constitutional: no acute distress, alert Eyes: non-icteric ENT: oropharynx moist, oropharynx dry, other ( Mallampati 4) Neck: supple, no JVD Ascultation: Bilateral: clear Percussion: Bilateral: not dull Cardiovascular: regular rate and rhythm Gastrointestinal: normoactive bowel sounds, non-distended Integumentary: normal Extremities: no cyanosis, no edema Neurologic: normal mental status, non-focal exam, pupils equal and round, CN II- XII normal Psychiatric: mood appropriate, affect normal CBC and BMP: 01/08/18 19:04 01/11/18 06:11 Abnormal lab findings: Abnormal Labs 01/08/18 01/08/18 01/08/18 19:04 19:04 21:37 RBC 6.64 H Hgb 16.7 H Hct 52.7 H MCV 79 L MCH 25 L Sodium 127 L Potassium 5.5 H Chloride 80.0 L Carbon Dioxide 14 L BUN Glucose 591 H* POC Glucose 446 H Hemoglobin A1c Calcium Total Protein 9.1 H 01/09/18 01/09/18 01/09/18 00:10 02:21 02:34 RBC Hgb Hct MCV MCH Sodium 133 L Potassium Chloride 86.3 L Carbon Dioxide 14 L BUN Glucose 362 H POC Glucose 385 H 347 H Hemoglobin A1c Calcium Total Protein 01/09/18 01/09/18 01/09/18 04:30 04:31 06:37 RBC Hgb Hct MCV MCH Sodium 133 L Potassium Chloride 89.9 L Carbon Dioxide 13 L BUN Glucose 304 H POC Glucose 282 H 256 H Hemoglobin A1c Calcium Total Protein 01/09/18 01/09/18 01/09/18 07:16 08:21 09:55 RBC Hgb Hct MCV MCH Sodium 136 L 130 L Potassium Chloride 92.1 L 92.7 L Carbon Dioxide 14 L 13 L BUN Glucose 273 H 275 H POC Glucose 230 H Hemoglobin A1c Calcium Total Protein 01/09/18 01/09/18 01/09/18 10:15 11:47 13:43 RBC Hgb Hct MCV MCH Sodium Potassium Chloride Carbon Dioxide BUN Glucose POC Glucose 256 H 280 H 252 H Hemoglobin A1c Calcium Total Protein 01/09/18 01/09/18 01/09/18 15:32 16:41 17:36 RBC Hgb Hct MCV MCH Sodium 132 L Potassium Chloride 89.3 L Carbon Dioxide 16 L BUN 8 L Glucose 286 H POC Glucose 244 H 280 H Hemoglobin A1c Calcium Total Protein 01/09/18 01/09/18 01/09/18 18:48 19:58 21:01 RBC Hgb Hct MCV MCH Sodium Potassium Chloride Carbon Dioxide BUN Glucose POC Glucose 258 H 247 H 236 H Hemoglobin A1c Calcium Total Protein 01/09/18 01/09/18 01/10/18 22:13 23:15 00:16 RBC Hgb Hct MCV MCH Sodium Potassium Chloride Carbon Dioxide BUN Glucose POC Glucose 150 H 217 H 207 H Hemoglobin A1c Calcium Total Protein 01/10/18 01/10/18 01/10/18 01:23 01:31 02:10 RBC Hgb Hct MCV MCH Sodium 134 L Potassium Chloride 91.6 L Carbon Dioxide 14 L BUN 6 L Glucose 210 H POC Glucose 200 H 186 H Hemoglobin A1c Calcium Total Protein 01/10/18 01/10/18 01/10/18 03:03 04:12 05:04 RBC Hgb Hct MCV MCH Sodium Potassium Chloride Carbon Dioxide BUN Glucose POC Glucose 255 H 206 H 248 H Hemoglobin A1c Calcium Total Protein 01/10/18 01/10/18 01/10/18 06:18 07:04 08:02 RBC Hgb Hct MCV MCH Sodium Potassium Chloride Carbon Dioxide BUN Glucose POC Glucose 190 H 175 H 190 H Hemoglobin A1c Calcium Total Protein 01/10/18 01/10/18 01/10/18 09:02 10:57 10:57 RBC Hgb Hct MCV MCH Sodium 136 L Potassium 3.1 L D 3.1 L Chloride 94.8 L 95.2 L Carbon Dioxide 20 L 21 L BUN 6 L 6 L Glucose 160 H 161 H POC Glucose 179 H Hemoglobin A1c Calcium Total Protein 01/10/18 01/10/18 01/11/18 10:57 17:29 00:35 RBC Hgb Hct MCV MCH Sodium 136 L Potassium 3.2 L Chloride Carbon Dioxide 19 L 18 L BUN 5 L 6 L Glucose 160 H 194 H POC Glucose Hemoglobin A1c 15.4 H Calcium 8.1 L 8.1 L Total Protein 01/11/18 06:11 RBC Hgb Hct MCV MCH Sodium Potassium 3.4 L Chloride Carbon Dioxide 17 L BUN 5 L Glucose 205 H POC Glucose Hemoglobin A1c Calcium 8.3 L Total Protein
[2018-01-11] MEDS ORDERED: D5/0.45NS 1,000 ML IV SCH (10:00)
[2018-01-11] MEDS: HumuLIN R 100 UNITS in NACL 0.9% 99 ML IV SCH (11:15)
[2018-01-11] MEDS: LOVENOX SUB-Q SCH (11:16)
[2018-01-11] MEDS: D5W/0.45% NACL/KCL 20 MEQ 20 MEQ/1,000 ML BAG IV SCH (11:16)
[2018-01-11] MEDS: SODIUM CHLORIDE FLUSH SYRINGE 10 ML IV SCH ×2 (11:17→22:10)
[2018-01-11] MEDS ORDERED: SODIUM BICARBONATE IV ONE ×3 (11:51→13:00)
[2018-01-11] MEDS ORDERED: D5W/0.45% NACL/KCL 20 MEQ 20 MEQ/1,000 ML BAG IV SCH (12:00)
[2018-01-11 16:01] LABS: BUN/Creatinine Ratio 7; Blood Urea Nitrogen 6 mg/dL (9-20); Calcium 8.3 mg/dL (8.4-10.2); Hemolysis Index 5
[2018-01-11] MEDS ORDERED: KCL 20 MEQ in NACL 0.9% 250ML 250 ML IV ONE (16:30)
[2018-01-11] MEDS ORDERED: KCL 10MEQ/100ML 10 MEQ/100 ML BAG IV SCH (17:00)
[2018-01-11 20:13] LABS: BUN/Creatinine Ratio 6; Blood Urea Nitrogen 5 mg/dL (9-20); Calcium 8.1 mg/dL (8.4-10.2); Hemolysis Index 7
[2018-01-12] MEDS: HumuLIN R 100 UNITS in NACL 0.9% 99 ML IV SCH (02:57)
[2018-01-12 07:15] LABS: BUN/Creatinine Ratio 5; Blood Urea Nitrogen 4 mg/dL (9-20); Calcium 8.2 mg/dL (8.4-10.2); Hemolysis Index 7
[2018-01-12] MEDS ORDERED: D50W (25GM) Syringe IV PRN (10:08)
[2018-01-12] MEDS: LOVENOX SUB-Q SCH (10:08)
[2018-01-12] MEDS: SODIUM CHLORIDE FLUSH SYRINGE 10 ML IV SCH ×2 (10:09→21:06)
[2018-01-12] MEDS ORDERED: K-DUR PO ONE (11:18)
[2018-01-12] MEDS: HumuLIN R SUB-Q SCH ×3 (11:48→22:23)
--- NOTE | 2018-01-12 12:44 | Progress Note ---
Assessment and Plan Assessment and plan: DKA. Resolved. We will transition from IV insulin drip to long acting insulin 70/30 18 units twice a day. Continue IV fluid hydration. New onset diabetes mellitus. Continue diabetic teaching. Hypertension. Continue antihypertensive medications. Morbid obesity. Patient has been counseled on weight loss. DVT/GI prophylaxis. History Interval history: No new Issues overnight. Hospitalist Physical - Constitutional Vitals: Temp Pulse Resp BP Pulse Ox 98.1 F 88 16 133/74 98 01/12/18 12:00 01/12/18 10:00 01/12/18 10:00 01/12/18 11:00 01/12/18 11:00 General appearance: Present: no acute distress, well-nourished - EENT Eyes: Present: PERRL, EOM intact ENT: hearing intact, clear oral mucosa, dentition normal - Neck Neck: Present: supple, normal ROM - Respiratory Respiratory effort: normal Respiratory: bilateral: CTA - Cardiovascular Rhythm: regular Heart Sounds: Present: S1 & S2. Absent: gallop, rub - Extremities Extremities: no ischemia, No edema, Full ROM - Abdominal General gastrointestinal: soft, non-tender, non-distended, normal bowel sounds - Integumentary Integumentary: Present: clear, warm, dry - Neurologic Neurologic: CNII-XII intact, moves all extremities Results - Labs CBC & Chem 7: 01/08/18 19:04 01/12/18 06:35 Labs: Laboratory Last Values WBC 10.9 K/mm3 (4.5-11.0) 01/08/18 19:04 RBC 6.64 M/mm3 (3.65-5.03) H 01/08/18 19:04 Hgb 16.7 gm/dl (11.8-15.2) H 01/08/18 19:04 Hct 52.7 % (35.5-45.6) H 01/08/18 19:04 MCV 79 fl (84-94) L 01/08/18 19:04 MCH 25 pg (28-32) L 01/08/18 19:04 MCHC 32 % (32-34) 01/08/18 19:04 RDW 13.8 % (13.2-15.2) 01/08/18 19:04 Plt Count 177 K/mm3 (140-440) 01/08/18 19:04 Lymph % (Auto) 23.9 % (13.4-35.0) 01/08/18 19:04 [place] % (Auto) 6.8 % (0.0-7.3) 01/08/18 19:04 Eos % (Auto) 0.7 % (0.0-4.3) 01/08/18 19:04 Baso % (Auto) 0.9 % (0.0-1.8) 01/08/18 19:04 Lymph # 2.6 K/mm3 (1.2-5.4) 01/08/18 19:04 [place] # 0.7 K/mm3 (0.0-0.8) 01/08/18 19:04 Eos # 0.1 K/mm3 (0.0-0.4) 01/08/18 19:04 Baso # 0.1 K/mm3 (0.0-0.1) 01/08/18 19:04 Seg Neutrophils % 67.7 % (40.0-70.0) 01/08/18 19:04 Seg Neutrophils # 7.4 K/mm3 (1.8-7.7) 01/08/18 19:04 Sodium 140 mmol/L (137-145) 01/12/18 06:35 Potassium 3.1 mmol/L (3.6-5.0) L 01/12/18 06:35 Chloride 101.0 mmol/L (98-107) 01/12/18 06:35 Carbon Dioxide 24 mmol/L (22-30) 01/12/18 06:35 Anion Gap 18 mmol/L 01/12/18 06:35 BUN 4 mg/dL (9-20) L 01/12/18 06:35 Creatinine 0.8 mg/dL (0.8-1.5) 01/12/18 06:35 Estimated GFR > 60 ml/min 01/12/18 06:35 BUN/Creatinine Ratio 5 % 01/12/18 06:35 Glucose 136 mg/dL (75-100) H 01/12/18 06:35 POC Glucose 170 (70-105) H 01/12/18 11:34 Hemoglobin A1c 15.4 % (4-6) H 01/10/18 10:57 Ketones Quantitative Negative (Negative) 01/08/18 23:42 Calcium 8.2 mg/dL (8.4-10.2) L 01/12/18 06:35 Phosphorus 3.40 mg/dL (2.5-4.5) 01/09/18 02:34 Magnesium 2.30 mg/dL (1.7-2.3) 01/09/18 02:34 Total Bilirubin 0.80 mg/dL (0.1-1.2) 01/08/18 19:04 AST 23 units/L (5-40) 01/08/18 19:04 ALT 33 units/L (7-56) 01/08/18 19:04 Alkaline Phosphatase 104 units/L (35-129) 01/08/18 19:04 Total Protein 9.1 g/dL (6.3-8.2) H 01/08/18 19:04 Albumin 4.9 g/dL (3.9-5) 01/08/18 19:04 Albumin/Globulin Ratio 1.2 % 01/08/18 19:04 Lipase 21 units/L (13-60) 01/08/18 19:04 Urine Color Straw (Yellow) 01/08/18 21:53 Urine Turbidity Clear (Clear) 01/08/18 21:53 Urine pH 5.0 (5.0-7.0) 01/08/18 21:53 Ur Specific [place] 1.030 (1.003-1.030) 01/08/18 21:53 Urine Protein 30 mg/dl mg/dL (Negative) 01/08/18 21:53 Urine Glucose (UA) >=500 mg/dL (Negative) 01/08/18 21:53 Urine Ketones 80 mg/dL (Negative) 01/08/18 21:53 Urine Blood Sm (Negative) 01/08/18 21:53 Urine Nitrite Neg (Negative) 01/08/18 21:53 Urine Bilirubin Neg (Negative) 01/08/18 21:53 Urine Urobilinogen < 2.0 mg/dL (<2.0) 01/08/18 21:53 Ur Leukocyte Esterase Neg (Negative) 01/08/18 21:53 Urine WBC (Auto) 3.0 /HPF (0.0-6.0) 01/08/18 21:53 Urine RBC (Auto) 1.0 /HPF (0.0-6.0) 01/08/18 21:53 Urine Mucus Few /HPF 01/08/18 21:53
[2018-01-12] MEDS: NACL 0.9% 1000 ML 1,000 ML IV SCH (13:50)
[2018-01-13] MEDS: NACL 0.9% 1000 ML 1,000 ML IV SCH (04:40)
[2018-01-13 06:41] LABS: Basophils % (Auto) 0.3 % (0.0-1.8); Eosinophils # (Auto) 0.1 K/mm3 (0.0-0.4); Hematocrit 37.5 % (35.5-45.6); Hemoglobin 12.3 gm/dl (11.8-15.2); Mean Corpuscular HGB Conc 33 % (32-34); Mean Corpuscular Volume 76 fl (84-94); Monocytes # (Auto) 0.6 K/mm3 (0.0-0.8); Monocytes % (Auto) 12.4 % (0.0-7.3); Platelet Count 122 K/mm3 (140-440); Red Blood Count 4.92 M/mm3 (3.65-5.03); Red Cell Distribution Width 13.9 % (13.2-15.2)
[2018-01-13 06:52] LABS: Mean Corpuscular Hemoglobin 25 pg (28-32)
[2018-01-13 07:06] LABS: BUN/Creatinine Ratio 6; Blood Urea Nitrogen 4 mg/dL (9-20); Calcium 8.4 mg/dL (8.4-10.2); Hemolysis Index 4
[2018-01-13] MEDS: HumuLIN R SUB-Q SCH ×2 (07:30→11:30)
[2018-01-13] MEDS ORDERED: K-DUR PO ONE ×2 (08:46→12:46)
--- NOTE | 2018-01-13 08:51 | Discharge Summary ---
Providers - Providers Date of Admission: 01/09/18 02:19 Date of discharge: 01/13/18 Attending physician: SARTHAK COOK 01/09/18 02:19 Consult to Physician [CONS] Routine Consulting Provider: CANDACE EASTMAN Reason For Exam: cc Place consult to:: Dr. Dickinson Notified:: Answering Service Phone number called:: [phone] Was contact made?: Yes If yes, spoke with:: Hayden Primary care physician: AKIN DIAZ Hospitalization Reason for admission: DKA Condition: Stable Hospital course: 22-year-old male with a history of hypertension, obesity comes emergency room with abdominal pain that started 4 days prior to admission. The pain was in the lower abdomen and described as a dull pain, constant, intensity palpable at 10, no radiation. He admitted to multiple episodes of nausea vomiting, polyuria , polydipsia, unclear if he lost any weight. The patient was admitted with diagnosis of new onset diabetes mellitus with DKA. CTA of the abdomen and pelvis revealed no acute process. Patient received IV fluid hydration as well as insulin drip. When the anion gap closed and DKA resolved, patient was transitioned to long-acting insulin of 70/30 18 units twice a day. The patient 's blood sugar was noted to remain stable. Patient also was noted have hypokalemia which was repleted prior to discharge. The patient received appropriate diabetic teaching. Patient will be discharged home and is to follow -up with primary care physician. Dedicated discharge time 32 minutes. Disposition: -01 TO HOME OR SELFCARE Time spent for discharge: 32 - Discharge Diagnoses (1) DKA (diabetic ketoacidoses) Status: Acute Qualifiers: Diabetes mellitus type: type 2 Diabetes mellitus complication detail: without coma Qualified Code(s): E11.10 - Type 2 diabetes mellitus with ketoacidosis without coma (2) New onset type 2 diabetes mellitus Status: Acute Core Measure Documentation - Palliative Care Palliative Care/ Comfort Measures: Not Applicable - Core Measures Any of the following diagnoses?: none Exam - Constitutional Vitals: Temp Pulse Resp BP Pulse Ox 98.6 F 89 18 109/62 94 01/12/18 23:13 01/12/18 23:13 01/12/18 23:13 01/12/18 23:13 01/12/18 23:13 General appearance: Present: no acute distress, well-nourished - EENT Eyes: Present: PERRL ENT: hearing intact, clear oral mucosa - Neck Neck: Present: supple, normal ROM - Respiratory Respiratory effort: normal Respiratory: bilateral: CTA - Cardiovascular Heart Sounds: Present: S1 & S2. Absent: rub, click - Extremities Extremities: pulses symmetrical, No edema Peripheral Pulses: within normal limits - Abdominal General gastrointestinal: Present: soft, non-tender, non-distended, normal bowel sounds Male genitourinary: Present: normal - Integumentary Integumentary: Present: clear, warm, dry - Musculoskeletal Musculoskeletal: gait normal, strength equal bilaterally - Psychiatric Psychiatric: appropriate mood/affect, intact judgment & insight - Neurologic Neurologic: CNII-XII intact, moves all extremities Plan Activity: no restrictions Weight Bearing Status: Full Weight Bearing Diet: diabetic Follow up with: AKIN DIAZ MD [Primary Care Provider] - 3-5 Days Prescriptions: Insulin NPH/Regular [NovoLIN 70/30] 18 unit SUB-Q BIDDIAB #60 units Lisinopril [Zestril] 20 mg PO DAILY #60 tablet Other Discharge Orders: Glucometer supplies[Amb] Location: None Selected Glucometer (Amb) Location: None Selected
[2018-01-13 09:18] VITALS: BP 148/91
[2018-01-13] MEDS: LOVENOX SUB-Q SCH (09:47)
[2018-01-13] MEDS: SODIUM CHLORIDE FLUSH SYRINGE 10 ML IV SCH (09:48)
== END 2018-01-13 14:20 | disposition home or self-care (01) | DRG 638 ==
LOC: ED 18:18 → CC1 01-09 02:19 → 3A 01-12 10:11
PROVIDERS: ADMIT Internal Medicine; ATTEND Hospitalist
DX: E11.10 Type 2 diabetes mellitus with ketoacidosis without coma (principal); E87.1 Hypo-osmolality and hyponatremia; I10 Essential (primary) hypertension; E11.00 Type 2 diabetes mellitus with hyperosmolarity without nonketotic hyperglycemic-hyperosmolar coma (NKHHC); E87.5 Hyperkalemia; E66.01 Morbid (severe) obesity due to excess calories; E87.6 Hypokalemia; Z68.39 Body mass index [BMI] 39.0-39.9, adult; Z82.49 Family history of ischemic heart disease and other diseases of the circulatory system; Z83.3 Family history of diabetes mellitus
CPT/HCPCS: 36415; 74176; 80048; 80053; 81001; 82010; 82962; 83036; 83690; 83735; 84100; 85025; 94760; 96361; 96374; 96375; J1650; J1815; J2270; J2405; J3480; J7030; J7050